=== PATIENT | female | born 1945 | race Caucasian/White ===

== ENCOUNTER → 2024-08-29 06:35 | Day surgery (SDC) | payer OTHER, SELFPAY | LOC: GI 06:35 | PROVIDERS: ATTENDING PHYSICIAN Internal Medicine Gastroenterology | DX: R13.10 Dysphagia, unspecified (principal); R12 Heartburn; K31.89 Other diseases of stomach and duodenum; Q40.2 Other specified congenital malformations of stomach; K29.50 Unspecified chronic gastritis without bleeding; B96.81 Helicobacter pylori [H. pylori] as the cause of diseases classified elsewhere | CPT/HCPCS: 43239; 88305; 88342 ==

== ENCOUNTER → 2024-09-23 12:54 | Outpatient (REF) | payer OTHER, SELFPAY | LOC: HWWDC 12:54 | PROVIDERS: ATTENDING PHYSICIAN Nurse Practitioner Adult Health | DX: Z12.31 Encounter for screening mammogram for malignant neoplasm of breast (principal); Z78.0 Asymptomatic menopausal state | CPT/HCPCS: 77063; 77067; 77080 ==

== ENCOUNTER → 2025-11-09 12:25 | Outpatient (REF) | payer OTHER, SELFPAY | LOC: HWWDC 12:25 | PROVIDERS: ATTENDING PHYSICIAN Nurse Practitioner Adult Health | DX: Z12.31 Encounter for screening mammogram for malignant neoplasm of breast (principal) | CPT/HCPCS: 77063; 77067 ==